=== PATIENT | female | born 1945 | race Two or more races ===

== ENCOUNTER 2019-01-03 09:07 | Day surgery (SDC) | payer OTHER ==
[2018-12-31 12:10] LABS: Basophils # (auto) 0 uL; Basophils % (auto) 0.8 % (0.0-2.0); Eosinophils # (auto) 0.1 uL; Eosinophils % (auto) 0.9 % (0.0-7.0); Hematocrit 43.5 % (36.0-46.0); Hemoglobin 14.4 g/dL (12.2-16.2); Lymphocytes # (auto) 1.9 uL; Lymphocytes % (auto) 30.8 % (10.0-50.0); Mean Corpuscular Hemoglobin 28.2 pg (28.0-32.0); Mean Corpuscular Hgb Conc. 33.2 g/dL (32.0-36.0); Monocytes # (auto) 0.4 uL; Monocytes % (auto) 6.6 % (0.0-12.0); Neutrophils # (auto) 3.7 uL; Neutrophils % (auto) 60.9 % (37.0-80.0); Platelet Count (auto) 338 10^3/uL (140-450); Red Blood Cells 5.12 10^6/uL (4.0-5.20); Red Cell Distribution Width 15.3 % (11.8-14.3)
[2018-12-31 12:11] LABS: Urine Bacteria NONE SEEN /hpf (None Seen); Urine Blood Negative /uL (Negative); Urine WBC 2 /hpf (0 - 5)
[2018-12-31 12:21] LABS: INR 1.01 (0.9-1.15); Partial Thromboplastin Time 33.3 sec (23.64-32.05)
[2018-12-31 12:32] LABS: BUN/Creatinine Ratio 14.6; Calcium 9.5 mg/dL (8.5-10.1); Potassium 4.1 mmol/L (3.5-5.1)
[~2019-01-03] VITALS: Ht 162.6 cm; Wt 71.7 kg
[~2019-01-03 09:07] MED LIST: AML5T PO; ATOR40TA52 PO; CLOP75TA28; LEVO25TA6 PO; LINA5TAB PO; METF-371 PO; METO-158 PO; PIOG15TA38; TRIA0.1P12; TRIA75TA55 PO
[2019-01-03] MEDS ORDERED: MIDAZOLAM HCL 1MG/1ML-2 ML VIAL ONE (10:20)
[2019-01-03] MEDS ORDERED: LIDOCAINE 2% (LOCAL ANESTH.) PF 5ml SDV ONE (10:21)
[2019-01-03] MEDS ORDERED: ceFAZolin 1GM/50ML 50 ML IV ONE (11:09)
[2019-01-03] MEDS ORDERED: ROCURONIUM 10MG/ML 10ML VIAL IV ONE (11:12)
[2019-01-03] MEDS ORDERED: ETOMIDATE (2MG/ML) 20ML VIAL IV ONE (11:12)
[2019-01-03] MEDS ORDERED: METOCLOPRAMIDE HCL 5MG/ml INJ 2ml VIAL ONE (11:15)
[2019-01-03] MEDS ORDERED: ACCU-CHEK COMFORT CURVE STRIP VI ONE (11:30)
[2019-01-03] MEDS ORDERED: ONDANSETRON HCL 4 MG/2 ML VIAL IV PRN (11:30)
[2019-01-03] MEDS ORDERED: NALOXONE HCL 0.4 MG/ML VIAL IV PRN (11:30)
[2019-01-03] MEDS ORDERED: HYDROmorphone HCL 2 MG/ML VL IV PRN ×2 (11:30)
[2019-01-03] MEDS ORDERED: fentaNYL CITRATE 100 MCG/2 ML VL ONE (11:38)
[2019-01-03] MEDS ORDERED: LIDOCAINE W/ EPINEPHRINE 1 % INJ 30ML ONE (11:39)
[2019-01-03] MEDS ORDERED: CONJ ESTROGENS 0.625MG/GM VAG CRM 30GM PV ONE (11:52)
[2019-01-03] MEDS ORDERED: NEOSTIGMINE 1 MG/ML INJ (10mg/10ML VIAL) ONE (12:24)
[2019-01-03] MEDS ORDERED: GLYCOPYRROLATE 0.2 MG/ML 1ML VIAL ONE (12:24)
[2019-01-03 13:51] VITALS: BP 144/57
== END 2019-01-03 14:10 | disposition home or self-care (01) ==
LOC: SUR 09:07
PROVIDERS: ATTEND Urology
DX: N81.11 Cystocele, midline (principal); I10 Essential (primary) hypertension; E11.9 Type 2 diabetes mellitus without complications; E03.9 Hypothyroidism, unspecified; M19.90 Unspecified osteoarthritis, unspecified site; K21.9 Gastro-esophageal reflux disease without esophagitis; Z79.84 Long term (current) use of oral hypoglycemic drugs; Z79.899 Other long term (current) drug therapy; Z86.73 Personal history of transient ischemic attack (TIA), and cerebral infarction without residual deficits; Z90.710 Acquired absence of both cervix and uterus
CPT/HCPCS: 36415; 57240; 57282; 80048; 81001; 82962; 85025; 85610; 85730; 87086; 88305; C2631; J0690; J2001; J2250; J2765; J3010

== ENCOUNTER → 2019-01-17 | Outpatient (CLI) | payer OTHER | END | disposition home or self-care (01) | LOC: LAB 16:08 | PROVIDERS: ATTEND Urology | DX: N39.0 Urinary tract infection, site not specified (principal); Z90.710 Acquired absence of both cervix and uterus; Z90.722 Acquired absence of ovaries, bilateral; Z90.79 Acquired absence of other genital organ(s) | CPT/HCPCS: 87086 ==